=== PATIENT | male | born 1965 | race Two or more races ===

== ENCOUNTER 2021-02-28 22:34 | Emergency (ER) | payer MEDICAID, OTHER ==
[~2021-02-28] VITALS: Ht 170.2 cm; Wt 81.6 kg
[2021-03-01 00:36] LABS: Basophils # (auto) 0.1 10 ^3/uL (0-0.2); Eosinophils # (auto) 0.1 10 ^3/uL (0-0.8); Eosinophils % (auto) 0.5 % (0.0-7.0); Hemoglobin 18.1 g/dL (13.5-17.5); Monocytes # (auto) 1.6 10 ^3/uL (0-1.3)
[2021-03-01 00:38] LABS: Basophils % (auto) 0.6 % (0.0-2.0); Hematocrit 52.1 % (41.0-53.0); Lymphocytes # (auto) 2.8 10 ^3/uL (0.4-5.4); Mean Corpuscular Hemoglobin 31.1 pg (28.0-32.0); Mean Corpuscular Hgb Conc. 34.8 g/dL (32.0-36.0); Mean Corpuscular Volume 89.5 fL (80.0-100.0); Monocytes % (auto) 12.4 % (0.0-12.0); Neutrophils # (auto) 8.1 10 ^3/uL (1.6-8.6); Neutrophils % (auto) 64.5 % (37.0-80.0); Nucleated Red Blood Cells % 0.1 %; Red Blood Cells 5.82 10^6/uL (4.5-5.90); Red Cell Distribution Width 13.3 % (11.8-14.3); White Blood Cell 12.6 10^3/uL (4.4-10.8)
[2021-03-01] MEDS ORDERED: cloNIDine HCL 0.1 MG TAB PO ONE (00:45)
[2021-03-01] MEDS ORDERED: SODIUM CHLORIDE 0.9% 1,000 ML IV ONE (00:45)
[2021-03-01 00:59] LABS: Albumin 4.3 g/dL (3.4-5.0); Magnesium 2.1 mg/dL (1.6-2.6)
[2021-03-01 01:26] LABS: BUN/Creatinine Ratio 15.3; Potassium 3.7 mmol/L (3.5-5.1)
[2021-03-01 01:29] LABS: Bilirubin, Total 0.5 mg/dL (0.2-1.0); Total Protein 8.8 g/dL (6.4-8.2)
[2021-03-01 03:03] VITALS: BP 123/88
[2021-03-01 03:50] LABS: Urine Bacteria NONE SEEN /hpf (None Seen); Urine Blood Negative /uL (Negative); Urine Specific Gravity 1.017 (1.001-1.035); Urine WBC <1 /hpf (0 - 3)
== END 2021-03-01 03:33 | disposition home or self-care (01) ==
LOC: ER 22:38
DX: I10 Essential (primary) hypertension (principal); E86.0 Dehydration
CPT/HCPCS: 36415; 71045; 80053; 81001; 83735; 84443; 84484; 85025; 93005

== ENCOUNTER 2021-03-03 04:38 | Emergency (ER) | payer MEDICAID ==
[~2021-03-03] VITALS: Ht 170.2 cm; Wt 81.6 kg
[2021-03-03 04:43] VITALS: BP 225/91
== END 2021-03-03 05:21 | disposition left against medical advice (07) ==
LOC: ER 04:38
DX: I10 Essential (primary) hypertension (principal); Z53.21 Procedure and treatment not carried out due to patient leaving prior to being seen by health care provider

== ENCOUNTER 2021-03-03 13:20 | Emergency (ER) | payer MEDICAID ==
[~2021-03-03] VITALS: Ht 170.2 cm; Wt 82.1 kg
[2021-03-03 15:16] LABS: Eosinophils # (auto) 0 10 ^3/uL (0-0.8); Lymphocytes # (auto) 1.1 10 ^3/uL (0.4-5.4)
[2021-03-03 15:18] LABS: Basophils # (auto) 0 10 ^3/uL (0-0.2); Basophils % (auto) 0.4 % (0.0-2.0); Eosinophils % (auto) 0.1 % (0.0-7.0); Hematocrit 53.4 % (41.0-53.0); Hemoglobin 18.5 g/dL (13.5-17.5); Lymphocytes % (auto) 10.8 % (10.0-50.0); Mean Corpuscular Hgb Conc. 34.6 g/dL (32.0-36.0); Mean Corpuscular Volume 89.5 fL (80.0-100.0); Monocytes % (auto) 9.5 % (0.0-12.0); Neutrophils # (auto) 8.3 10 ^3/uL (1.6-8.6); Neutrophils % (auto) 79.2 % (37.0-80.0); Nucleated Red Blood Cells % 0.1 %; Red Blood Cells 5.97 10^6/uL (4.5-5.90); Red Cell Distribution Width 13.4 % (11.8-14.3); White Blood Cell 10.4 10^3/uL (4.4-10.8)
[2021-03-03 15:24] LABS: Urine Bacteria NONE SEEN /hpf (None Seen); Urine Blood Negative /uL (Negative); Urine Mucus FEW (None Seen); Urine WBC 1 /hpf (0 - 3)
[2021-03-03 15:25] LABS: Albumin 4.4 g/dL (3.4-5.0); Magnesium 2.2 mg/dL (1.6-2.6)
[2021-03-03 15:30] LABS: BUN/Creatinine Ratio 8.6; Bilirubin, Total 0.8 mg/dL (0.2-1.0); Total Protein 9.3 g/dL (6.4-8.2)
[2021-03-03] MEDS ORDERED: cloNIDine HCL 0.1 MG TAB ONE (17:06)
[2021-03-03 23:35] VITALS: BP 146/95
== END 2021-03-04 00:27 | disposition home or self-care (01) ==
LOC: ER 13:20
DX: R00.2 Palpitations (principal); I10 Essential (primary) hypertension
CPT/HCPCS: 36415; 71046; 80053; 81001; 83735; 84443; 84484; 85025; 93005